=== PATIENT | male | born 1990 | race Caucasian/White ===

== ENCOUNTER 2017-07-23 21:56 | Emergency (ER) | payer SELFPAY ==
[~2017-07-23] VITALS: Ht 167.6 cm; Wt 75.0 kg
[~2017-07-23 21:56] MED LIST: ACET500C5 PO; ALBU8.5H3 INH; AMOX500C2 PO; AZIT250T94 PO; HYDR-906 PO; OMEP20CA16 PO; ONDA4TAB14 PO; PRED50TA PO; PROM6.25 PO
[2017-07-23 21:59] VITALS: Ht 167.6 cm; Wt 75.0 kg
--- NOTE | 2017-07-24 00:11 | ERD ---
ER Documentation Chief Complaint Chief Complaint bilateral ankle pain x 3 months HPI This 27-year-old male patient reports left ankle pain after playing football and goint to the gym. pt reports that he felt something "pop" reports remote injury months ago , pain with ambulation ROS All systems reviewed and are negative except as per history of present illness. Medications Home Meds Active Scripts Omeprazole* (Omeprazole*) 20 Mg Capsule.dr, 20 MG PO BID, #60 Prov:JOSÉ CRUZ PA-C 08/31/16 Hydrocodone/Acetaminophen ([place] 5-325 Tablet) 1 Each Tablet, 1 TAB PO Q6H Y for PAIN, #10 TAB Prov:JOSÉ CRUZ PA-C 08/31/16 Acetaminophen* (Tylophen*) 500 Mg Capsule, 1 CAP PO Q6H Y for PAIN AND OR ELEVATED TEMP, #20 CAP Prov:JOSÉ CRUZ PA-C 08/31/16 Ondansetron (Ondansetron Odt) 4 Mg Tab.rapdis, 4 MG PO Q6H Y for NAUSEA AND/OR VOMITING, #15 TAB Prov:JOSÉ CRUZ PA-C 08/31/16 Albuterol Sulfate* (Proair HFA*) 8.5 Gm Hfa.aer.ad, 2 PUFF INH Q4, #1 INHALER Prov:EMMA LKINE PA-C 11/15/15 Azithromycin* (Zithromax*) 250 Mg Tablet, 250 MG PO DAILY, #6 TAB zpak as directed Prov:EMMA KLINE PA-C 11/15/15 Prednisone* (Prednisone*) 50 Mg Tablet, 50 MG PO DAILY for 5 Days, TAB Prov:EMMA KLINE PA-C 11/15/15 Promethazine w/Codeine* (Phenergan w/Codeine* Syrup) 5 Ml Syrup, 5 ML PO Q4H Y for COUGH, #4 ML Prov:EMMA KLINE PA-C 11/15/15 Amoxicillin* (Amoxicillin*) 500 Mg Cap, 500 MG PO BID for 7 Days, CAP Prov:EMMA KLINE PA-C 11/15/15 Allergies Allergies: Coded Allergies: No Known Allergy (Unverified , 07/23/17) PMhx/Soc History of Surgery: No Anesthesia Reaction: No Hx Neurological Disorder: No Hx Respiratory Disorders: No Hx Cardiac Disorders: No Hx Psychiatric Problems: No Hx Miscellaneous Medical Probl: No Hx Alcohol Use: No Hx Substance Use: Yes (occasional) Hx Tobacco Use: Yes (occasional) Physical Exam Vitals Vital Signs Date Time Temp Pulse Resp B/P Pulse Ox O2 Delivery O2 Flow Rate FiO2 07/23/17 21:59 98.2 77 19 126/81 100 Vitals stable, triage notes reviewed Physical Exam Const: Well-nourished well-hydrated well-appearing 27-year-old male patient no acute distress Head: Eyes: ENT: Neck: Resp: Cardio: Abd: Skin: Back: Ext: Lower Extremity -left ankle Skin: No laceration Compartments: Soft Motor: Full active range of motion hip/knee/ankle/foot, patient ambulating with limp, High test negative Sensation: Intact to light touch superior inferior and lateral surfaces surfaces. Bones: Nontender pelvis/knee/proximal tibia/ malleoli/foot Joints: No effusion or laxity Pulses/Perfusion: 2+ DP, Capillary refill < 2 seconds Neur: Awake and alert Psych: Normal Mood and Affect Results 24 hrs Current Medications Medications (Trade) Dose Ordered Sig/Maryjane Route PRN Reason Start Time Stop Time Status Last Admin Dose Admin Ibuprofen (Motrin) 600 mg ONCE ONCE PO 07/24/17 00:30 07/24/17 00:31 DC 07/24/17 00:40 Procedures/MDM PROCEDURE: XR Ankle. CLINICAL INDICATION: Left ankle injury and pain. TECHNIQUE: AP and lateral views of the left ankle were performed. COMPARISON: None. FINDINGS: There is normal mineralization and alignment. No fracture or osseous lesion is identified. The joints are normal. The soft tissues are unremarkable. IMPRESSION: Unremarkable left ankle. Physician Florecita Date Time Electronically viewed and signed by Physician Florecita on 07/24/2017 02:23 This 27-year-old male patient presents to emergency department for evaluation of left ankle pain, patient reports chronic pain for the last several months, status post a sprain seen here for evaluation reports he did not follow-up with primary care physician and ankle continues to hurt. States he was playing basketball today and went to the gym felt something pop now he has pain with weightbearing. Emergency room course includes history and physical exam, radiographic imaging, and pain control. Radiologist's interpretation of right ankle imaging there is normal mineralization, and alignment, no fracture or osseous lesion is identified. The joints are normal. The soft tissues are unremarkable. Plan to place patient in a air splint, crutches, instructed to follow-up with primary care physician for referral to intelligence research specialist for further evaluation of ankle pain. Patient is stable with no new complaints during ER course, clinically there is no current evidence to suggest Achilles tendon rupture, a distal fibula avulsion fracture, ankle dislocation peroneal nerve injury or any other emergent condition appearing to require further evaluation or hospitalization. I feel the patient is stable for discharge at this time. I have discussed results, examination findings, the treatment plan with the patient and family present prior to discharge. Indications for emergent reevaluation, side effects of medication were also discussed. All questions were answered. Patient verbalizes understanding and agrees with plan of care. Departure Diagnosis: Primary Impression: Ankle pain Chronicity: chronic Laterality: left Qualified Code: M25.572 - Chronic pain of left ankle Condition: Good Patient Instructions: Sprain, Ankle, With X-Ray Additional Instructions: Thank you for for coming to [facility] for your care today. Please ask your nurse or provider if you have questions about your care today and do not leave until all your questions have been answered. Please use any medications given as directed and follow-up with your doctor (or the doctor you were referred to) in the next 2-3 days. If you do not have a primary care doctor you may follow up at the [facility] (listed below). You may also use motrin and tylenol as needed for fever and/or pain unless instructed otherwise by your provider or nurse. Indications for more urgent follow-up have been discussed, but you may return to the Emergency Department at ANY time for any worrisome or worsening symptoms. If you have abdominal pain, please know that no test or exam you received is perfect and you should follow up within 8 hours for continued pain. If you had any imaging studies today, such as an X-Ray or CT Scan, these studies will be reviewed later by a radiologist. You will be called if there are important findings that were not identified today, so make sure the contact information you provided at registration is correct. If you received any narcotic pain control medicine today, such as Vicodin, Morphine or Dilaudid, your coordination and judgment may be affected for a number of hours. Please do not drive or operate heavy machinery, and you may want someone to assist you at home. If you were given a prescription for narcotic medication, be aware that it is very addictive- use sparingly and only if necessary. TRACY COLEY Jul 24, 2017 00:11
[2017-07-24] MEDS ORDERED: IBUPROFEN 600 MG TAB PO ONE (00:30)
--- NOTE | 2017-07-24 02:24 | RADRPT ---
PROCEDURE: XR Ankle. CLINICAL INDICATION: Left ankle injury and pain. TECHNIQUE: AP and lateral views of the left ankle were performed. COMPARISON: None. FINDINGS: There is normal mineralization and alignment. No fracture or osseous lesion is identified. The joint s are normal. The soft tissues are unremarkable. IMPRESSION: Unremarkable left ankle. RPTAT: [facility] Physician Florecita Date Time Electronically viewed and signed by Physician Florecita on 07/24/2017 02:23 RS/
[2017-07-24] MEDS ORDERED: IBUP-1542 PO (02:34)
== END 2017-07-24 02:56 | disposition left against medical advice (07) ==
LOC: FTE 21:56
DX: M25.572 Pain in left ankle and joints of left foot (principal)
CPT/HCPCS: 73610

== ENCOUNTER 2018-06-09 19:40 | Emergency (ER) | END 2018-06-10 00:20 | disposition left against medical advice (07) ==